=== PATIENT | female | born 1985 | race Caucasian/White ===

== ENCOUNTER 2016-05-11 11:17 | Emergency (ER) | payer MEDICAID ==
[2016-05-11] MEDS ORDERED: METOCLOPRAMIDE 10 MG/2 ML VIAL ONE (12:03)
[2016-05-11] MEDS ORDERED: DIPHENHYDRAMINE 50 MG/ML VIAL ONE (12:03)
[2016-05-11] MEDS ORDERED: KETOROLAC 30 MG/ML VIAL ONE (12:04)
== END 2016-05-11 13:00 | disposition home or self-care (01) ==
LOC: ER 11:17
DX: G43.809 Other migraine, not intractable, without status migrainosus (principal)
CPT/HCPCS: 96374; 96375